=== PATIENT | female | born 1970 | race Hispanic/Latino ===

== ENCOUNTER → 2021-10-04 | Day surgery (SDC) | payer BC ==
[2021-10-03 09:24] VITALS: BP 153/92
[2021-10-04] VITALS (16 sets, daily range): BP systolic 106–148; BP diastolic 81–97
[~2021-10-04] VITALS: Ht 162.6 cm; Wt 88.1 kg
[~2021-10-04] MED LIST: BUDE10.26 IH; CETI5TAB12 PO; EPHEDRINE SULFATE 50 MG/ML AMPULE ONE; FAMO40TA7 PO; FENTANYL CITRATE PF 50 MCG/1 ML 2ML VIAL ONE; LACTATED RINGERS 1000ML 1,000 ML IV ONE; MESA1.2T3 PO; MIDAZOLAM HCL 1 MG/ML 2ML VIAL ONE; MONT-39 PO; PROPOFOL 10 MG/ML 20ML VIAL IV ONE; ROSU5TAB12 PO; TRAN650T5 PO; VALS80TA30 PO; iron PO; vitamin d PO
[2021-10-04 06:46] LABS: BASOPHILS % (AUTO) 0.8 % (0.0-5.0); HEMATOCRIT 40.4 % (36-48); LYMPHOCYTES % (AUTO) 24.5 % (21.0-51.0); MEAN CORPUSCULAR HEMOGLOBIN 30.8 pg (27.0-33.0); MEAN CORPUSCULAR HGB CONC 34.7 g/dL (32.0-36.0); MEAN CORPUSCULAR VOLUME 88.8 fL (79-99); MONOCYTES % (AUTO) 6.8 % (3.0-13.0); NEUTROPHILS % (AUTO) 62.4 % (40.0-77.0); PLATELET COUNT (AUTO) 265 K/uL (130-400); RED BLOOD CELL COUNT(AUTO) 4.55 MIL/uL (4.00-5.50); WHITE BLOOD COUNT (AUTO) 9.3 K/uL (4.8-10.8)
== END | disposition home or self-care (01) ==
LOC: DAH 05:53
PROVIDERS: ATTEND Obstetrics & Gynecology
DX: N93.9 Abnormal uterine and vaginal bleeding, unspecified (principal); R93.89 Abnormal findings on diagnostic imaging of other specified body structures; N81.3 Complete uterovaginal prolapse; D25.9 Leiomyoma of uterus, unspecified; I10 Essential (primary) hypertension; E78.00 Pure hypercholesterolemia, unspecified; Z79.899 Other long term (current) drug therapy; Z83.3 Family history of diabetes mellitus; Z83.42 Family history of familial hypercholesterolemia; Z80.0 Family history of malignant neoplasm of digestive organs; Z90.49 Acquired absence of other specified parts of digestive tract; Z98.51 Tubal ligation status
CPT/HCPCS: 36415 ×2; 58558; 84703; 85025; 87635; A4215; A4221; A4222; A4223; A4351; A4355; A4663; A6260; C9803; J2250; J2704; J3010; J3490; J7030; J7120

== ENCOUNTER → 2023-03-05 | Outpatient (CLI) | payer BC ==
[~2023-03-05] MED LIST changes: -EPHEDRINE SULFATE 50 MG/ML AMPULE ONE; -FENTANYL CITRATE PF 50 MCG/1 ML 2ML VIAL ONE; +IOHEXOL 350 MG/ML 100ML INFUS..BTL IV ONE; -LACTATED RINGERS 1000ML 1,000 ML IV ONE; -MIDAZOLAM HCL 1 MG/ML 2ML VIAL ONE; -PROPOFOL 10 MG/ML 20ML VIAL IV ONE
== END | disposition home or self-care (01) ==
LOC: RAH 08:44
PROVIDERS: ATTEND Internal Medicine Nephrology
DX: N28.1 Cyst of kidney, acquired (principal); M47.815 Spondylosis without myelopathy or radiculopathy, thoracolumbar region; I70.90 Unspecified atherosclerosis
CPT/HCPCS: 74178; Q9967